=== PATIENT | female | born 1980 | race Caucasian/White ===

== ENCOUNTER 2022-02-26 08:27 | Outpatient (CLI) | payer OTHER, SELFPAY ==
[2022-02-26 09:02] LABS: Hematocrit 37.8 % (37.0-47.0); Hemoglobin 12.3 g/dL (12.0-15.0)
== END 2022-02-26 08:28 | disposition home or self-care (01) ==
LOC: ANHSURGERY 08:32
PROVIDERS: Anesthesiology; Visit Provider Neurological Surgery
DX: Z01.818 Encounter for other preprocedural examination (principal); D64.9 Anemia, unspecified; M46.1 Sacroiliitis, not elsewhere classified
CPT/HCPCS: 36415; 85014; 85018; 86850; 86900; 86901